=== PATIENT | male | born 1950 | race Caucasian/White ===

== ENCOUNTER 2018-07-16 00:59 | Outpatient (CLI) | payer BC, SELFPAY ==
[2018-07-16 11:35] LABS: Anion Gap 8.5 mmol/L (3-11); BUN 20 mg/dL (7-18); CO2 28.5 mmol/L (21.0-32.0); CREATININE 1.29 mg/dL (0.70-1.30); Calcium 9.3 mg/dL (8.5-10.1); Chloride 102 mmol/L (98-107); Cholesterol 285 mg/dL (50-200); Estimated GFR 55.56 (mL/min/1.73m2); Glucose 104 mg/dL (70-100); HDL Cholesterol 41 mg/dL (40-60); LDL CHOLESTEROL 203 mg/dL (<100); Potassium 4.4 mmol/L (3.5-5.1); Sodium 139 mmol/L (136-145); TSH 3.56 uIU/mL (0.358-3.74); Triglyceride 306 mg/dL (30-150)
[2018-07-17 09:52] LABS: PSA, Screening 0.6 ng/ml (0-4.5)
== END 2018-07-16 01:19 ==
PROVIDERS: PCP Emergency Medicine; Visit Provider Emergency Medicine
DX: E78.5 Hyperlipidemia, unspecified (principal); E03.9 Hypothyroidism, unspecified; I10 Essential (primary) hypertension; Z12.5 Encounter for screening for malignant neoplasm of prostate
CPT/HCPCS: 36415; 80048; 80061; 83721; 84153; 84443

== ENCOUNTER 2019-06-06 01:21 | Outpatient (CLI) | payer BC, SELFPAY ==
[2019-06-06 13:38] LABS: ALT 35 U/L (12-78); AST 18 U/L (15-37); Alkaline Phosphatase 68 U/L (46-116); Anion Gap 8.7 mmol/L (3-11); BUN 25 mg/dL (7-18); Bilirubin, Direct 0.15 mg/dL (0.00-0.20); Bilirubin, Total 0.9 mg/dL (0.2-1.0); CO2 26.3 mmol/L (21.0-32.0); CREATININE 1.27 mg/dL (0.70-1.30); Calcium 9.5 mg/dL (8.5-10.1); Chloride 103 mmol/L (98-107); Glucose 107 mg/dL (70-100); Sodium 138 mmol/L (136-145); TSH 1.82 uIU/mL (0.36-3.74); Total Protein 7.3 g/dL (6.4-8.2)
== END 2019-06-06 01:41 ==
PROVIDERS: PCP Emergency Medicine; Visit Provider Emergency Medicine
DX: E03.9 Hypothyroidism, unspecified (principal); E78.5 Hyperlipidemia, unspecified
CPT/HCPCS: 36415; 80048; 80076; 84443

== ENCOUNTER 2020-12-14 02:40 | Outpatient (CLI) | payer BC, SELFPAY ==
[2020-12-14 12:41] LABS: Anion Gap 7.9 mmol/L (3-11); BUN 26 mg/dL (7-18); CO2 29.1 mmol/L (21.0-32.0); CREATININE 1.3 mg/dL (0.70-1.30); Calcium 9.1 mg/dL (8.5-10.1); Calculated LDL 86 mg/dL (<100); Chloride 103 mmol/L (98-107); Cholesterol 159 mg/dL (<200); Estimated GFR 54.57 (mL/min/1.73m2); Glucose 103 mg/dL (74-106); HDL Cholesterol 54 mg/dL (40-60); Potassium 4.4 mmol/L (3.5-5.1); Sodium 140 mmol/L (136-145); TSH 2.54 uIU/mL (0.36-3.74); Triglyceride 95 mg/dL (<150)
[2020-12-14 22:29] LABS: PSA, Screening 0.4 ng/mL (0.0-6.5)
== END 2020-12-14 02:41 | disposition home or self-care (01) ==
LOC: LOS 02:40
PROVIDERS: PCP Emergency Medicine; Visit Provider Emergency Medicine
DX: E03.9 Hypothyroidism, unspecified (principal); I10 Essential (primary) hypertension; Z12.5 Encounter for screening for malignant neoplasm of prostate
CPT/HCPCS: 36415; 80048; 80061; 84153; 84443

== ENCOUNTER 2021-06-17 15:18 | Outpatient (CLI) | payer MEDICARE, BC, SELFPAY ==
--- NOTE | 2021-06-17 15:15 | RT.EKG_ITS ---
APPROVED REPORT Exam: Resting ECG Reason for Exam: chest pain Patient Location: O HR:51 bpm ECG Measurements Heart Rate 51 AXIS NM 232 P 68 QRSd 85 QRS 54 QT 435 T 58 QTc 403 Conclusion Sinus bradycardia...rate< 60 Prolonged NM interval...NM >220, V-rate 50- 90
== END 2021-06-17 15:19 | disposition home or self-care (01) ==
LOC: DI.CM 15:19
PROVIDERS: PCP Emergency Medicine; Visit Provider Emergency Medicine
DX: R07.9 Chest pain, unspecified (principal)
CPT/HCPCS: 93010

== ENCOUNTER 2022-06-28 03:04 | Outpatient (CLI) | payer MEDICARE, BC, SELFPAY ==
[2022-06-28 13:31] LABS: Anion Gap 7.6 mmol/L (3-11); BUN 34 mg/dL (7-18); CO2 29.4 mmol/L (21.0-32.0); CREATININE 1.3 mg/dL (0.70-1.30); Calcium 9.1 mg/dL (8.5-10.1); Calculated LDL 94 mg/dL (<100); Chloride 103 mmol/L (98-107); Cholesterol 158 mg/dL (<200); Estimated GFR 54.42 (mL/min/1.73m2); Glucose 108 mg/dL (74-106); HDL Cholesterol 47 mg/dL (40-60); Potassium 4.7 mmol/L (3.5-5.1); Sodium 140 mmol/L (136-145); Triglyceride 87 mg/dL (<150); Vitamin B12 401 pg/mL (193-986)
== END 2022-06-28 03:05 | disposition home or self-care (01) ==
LOC: LOS 03:05
PROVIDERS: PCP Family Medicine; Visit Provider Emergency Medicine
DX: I10 Essential (primary) hypertension (principal); E03.9 Hypothyroidism, unspecified; R20.0 Anesthesia of skin; G60.3 Idiopathic progressive neuropathy
CPT/HCPCS: 36415; 80048; 80061; 82607; 84443

== ENCOUNTER 2025-06-16 04:37 | Outpatient (CLI) | payer MEDICARE, BC, SELFPAY ==
[2025-06-16 13:01] LABS: Hemoglobin A1C 5.4 % (<5.7)
[2025-06-16 14:10] LABS: ALT 25 U/L (16-63); AST 17 U/L (15-37); Albumin 3.6 g/dL (3.4-5.0); Alkaline Phosphatase 62 U/L (46-116); Anion Gap 6.9 mmol/L (3-11); BUN 24 mg/dL (7-18); Bilirubin, Total 0.8 mg/dL (0.2-1.0); CO2 30.1 mmol/L (21.0-32.0); Calcium 9.1 mg/dL (8.5-10.1); Calculated LDL 97 mg/dL (<100); Chloride 104 mmol/L (98-107); Cholesterol 164 mg/dL (<200); Estimated GFR 63.46 (mL/min/1.73m2); Glucose 100 mg/dL (74-106); HDL Cholesterol 46 mg/dL (>or=40); Potassium 4.0 mmol/L (3.5-5.1); Sodium 141 mmol/L (136-145); TSH (W/Ref FT4) 2.31 uIU/mL (0.36-3.74); Total Protein 7.0 g/dL (6.4-8.2); Triglyceride 107 mg/dL (<150); Vitamin B12 337 pg/mL (193-986)
[2025-06-16 19:10] LABS: PSA, Diagnostic 0.6 ng/mL (<=6.5)
== END 2025-06-16 04:38 | disposition home or self-care (01) ==
LOC: LOS 04:37
PROVIDERS: PCP Family Medicine; Visit Provider Family Medicine
DX: N40.0 Benign prostatic hyperplasia without lower urinary tract symptoms (principal); E03.9 Hypothyroidism, unspecified; E53.8 Deficiency of other specified B group vitamins; I10 Essential (primary) hypertension; E11.9 Type 2 diabetes mellitus without complications
CPT/HCPCS: 36415; 80053; 80061; 82607; 83036; 84153; 84443